=== PATIENT | female | born 1980 | race Caucasian/White ===

== ENCOUNTER 2017-05-28 11:40 | Emergency (ER) | payer BC ==
[2017-05-28 12:03] VITALS: BP 125/90
--- NOTE | 2017-05-28 12:34 | UC ---
Ear Complaint HPI - HPI Summary HPI Summary: 36 year old with ear pain. productive harsh cough x3 days, bilat ear pain and sore throat. Lost voice 2 days ago. [ End ] - History of Current Complaint Chief Complaint: UCGeneralIllness Stated Complaint: COUGH/ST/EAR ACHE Time Seen by Provider: 05/28/17 12:32 Hx Obtained From: Patient Hx Last Menstrual Period: 05/20/17 ?: No Onset/Duration: Gradual Onset Severity Initially: Moderate Severity Currently: Moderate - Allergies/Home Medications Allergies/Adverse Reactions: Allergies Allergy/AdvReac Type Severity Reaction Status Date / Time Metoclopramide [From Reglan] Allergy Severe Anaphylatic Verified 05/28/17 12:03 Shock Penicillins Allergy Severe Rash And Verified 03/02/17 14:49 Itching Clarithromycin [From Biaxin] Allergy Rash And Verified 03/02/17 14:49 Itching Doxycycline Allergy Rash And Verified 05/28/17 12:03 Itching Lisinopril Allergy Hives Verified 05/28/17 12:03 Sulfamethoxazole Allergy Hives Verified 05/28/17 12:03 w/Trimethoprim [From Bactrim] PMH/Surg Hx/FS Hx/Imm Hx Previously Healthy: Yes Cardiovascular History: Hypertension Psychological History: Anxiety, Depression - Surgical History Surgical History: Yes Surgery Procedure, Year, and Place: 5 eye surgeries TIGHTENED MUSCLES FOR CROSSED EYE, T & A, Bone biopsy left leg - Family History Known Family History: Positive: Cardiac Disease - Social History Occupation: Employed Full-time Lives: With Family Alcohol Use: None Substance Use Type: None Smoking Status (MU): Never Smoked Tobacco Have You Smoked in the Last Year: No - Immunization History Most Recent Influenza Vaccination: not current Review of Systems Constitutional: Fatigue ENT: Sore Throat, Ear Ache, Nasal Discharge, Sinus Congestion, Sinus Pain/ Tenderness Respiratory: Cough Is Patient Immunocompromised?: No All Other Systems Reviewed And Are Negative: Yes Physical Exam Triage Information Reviewed: Yes Appearance: Well-Appearing, No Pain Distress, Well-Nourished Vital Signs: Initial Vital Signs Temp 97.9 F 05/28/17 11:58 Pulse 106 05/28/17 11:58 Resp 18 05/28/17 11:58 BP 125/90 05/28/17 11:58 Pulse Ox 99 05/28/17 11:58 Vital Signs Reviewed: Yes Eye Exam: Normal ENT Exam: Normal ENT: Positive: Nasal congestion, Nasal drainage, TM dull Dental Exam: Normal Neck exam: Normal Neck: Positive: 1 Respiratory Exam: Normal Respiratory: Positive: Chest non-tender, Lungs clear, Normal breath sounds, No respiratory distress, No accessory muscle use Cardiovascular Exam: Normal Musculoskeletal Exam: Normal Neurological Exam: Normal Psychological Exam: Normal Skin Exam: Normal Ear Complaint Course/Dx - Course Course Of Treatment: Supportive care for viral URI - Differential Dx/Diagnosis Differential Diagnosis/HQI/PQRI: Otitis Externa, Otitis Media, Perforated TM, Pharyngitis, URI Provider Diagnoses: URI Discharge - Discharge Plan Condition: Good Disposition: HOME Prescriptions: Benzonatate [Benzonatate 200 MG] 200 mg PO TID #20 cap Patient Education Materials: Upper Respiratory Infection (ED) Forms: *Work Release Referrals: Beltran Escobedo MD [Primary Care Provider] - 4 Days Additional Instructions: Please consider using either claritin or Coricidan HBP with flonase in the AM. Please use Netti Pot and NyQuil in the PM.
== END 2017-05-28 12:54 | disposition home or self-care (01) ==
LOC: UCCORT 11:40
DX: J06.9 Acute upper respiratory infection, unspecified (principal); H92.03 Otalgia, bilateral; I10 Essential (primary) hypertension; Z88.1 Allergy status to other antibiotic agents; Z88.0 Allergy status to penicillin; Z88.8 Allergy status to other drugs, medicaments and biological substances; Z88.2 Allergy status to sulfonamides
CPT/HCPCS: 99212; G0463

== ENCOUNTER 2019-02-06 10:22 | Emergency (ER) | payer BC ==
[2019-02-06 11:00] VITALS: BP 139/92
--- NOTE | 2019-02-06 11:25 | UC ---
Throat Pain/Nasal Oumar HPI - HPI Summary HPI Summary: Pt presents with c/o ST, nasal congestion, cough, right ear ache, with green colored discharge yesterday, body aches, malaise, X 4 days. - History of Current Complaint Chief Complaint: UCRespiratory Stated Complaint: SORE THROAT RIGHT EAR COUGH Time Seen by Provider: 02/06/19 11:00 Hx Obtained From: Patient Hx Last Menstrual Period: 01/26/19 ?: No Onset/Duration: Gradual Onset, Lasting Days, Still Present Severity: Moderate Pain Intensity: 8 Cough: Productive Associated Signs & Symptoms: Positive: Dysphagia, Nasal Discharge - Epiglottits Risk Factors Epiglottis Risk Factors: Negative - Allergies/Home Medications Allergies/Adverse Reactions: Allergies Allergy/AdvReac Type Severity Reaction Status Date / Time metoclopramide [From Reglan] Allergy Severe Anaphylatic Verified 02/06/19 10:51 Shock clarithromycin Allergy Unknown Rash And Verified 02/06/19 10:51 Itching doxycycline Allergy Unknown Rash And Verified 02/06/19 10:51 Itching lisinopril Allergy Unknown Hives Verified 02/06/19 10:51 Penicillins Allergy Unknown Rash And Verified 02/06/19 10:51 Itching Sulfa (Sulfonamide Allergy Unknown Hives Verified 02/06/19 10:51 Antibiotics) Home Medications: Home Medications Verapamil TAB* [Calan TAB*] 80 mg PO DAILY 02/06/19 [History Confirmed 02/06/19] PMH/Surg Hx/FS Hx/Imm Hx Previously Healthy: Yes Neurological History: Migraine - Surgical History Surgical History: Yes Surgery Procedure, Year, and Place: 5 eye surgeries TIGHTENED MUSCLES FOR CROSSED EYE, T & A, Bone biopsy left leg - Family History Known Family History: Positive: Cardiac Disease - Social History Occupation: Employed Full-time Lives: With Family Alcohol Use: Occasionally Substance Use Type: None Smoking Status (MU): Never Smoked Tobacco Have You Smoked in the Last Year: No - Immunization History Most Recent Influenza Vaccination: not current Review of Systems All Other Systems Reviewed And Are Negative: Yes Constitutional: Positive: Chills, Fatigue Skin: Positive: Negative Eyes: Positive: Negative ENT: Positive: Sore Throat, Ear Ache, Nasal Discharge, Sinus Congestion Respiratory: Positive: Cough Cardiovascular: Positive: Negative Gastrointestinal: Positive: Negative Genitourinary: Positive: Negative Motor: Positive: Negative Neurovascular: Positive: Negative Musculoskeletal: Positive: Myalgia Psychological: Positive: Negative Is Patient Immunocompromised?: No Physical Exam Triage Information Reviewed: Yes Appearance: Ill-Appearing Vital Signs: Initial Vital Signs Temp 98.5 F 02/06/19 10:52 Pulse 95 02/06/19 10:52 Resp 20 02/06/19 10:52 BP 139/92 02/06/19 10:52 Pulse Ox 99 02/06/19 10:52 Vital Signs Reviewed: Yes Eye Exam: Normal ENT Exam: Normal ENT: Positive: Normal ENT inspection Dental Exam: Normal Neck exam: Normal Respiratory Exam: Normal Cardiovascular Exam: Normal Musculoskeletal Exam: Normal Neurological Exam: Normal Psychological Exam: Normal Skin Exam: Normal Throat Pain/Nasal Course/Dx - Course Course Of Treatment: I disucussed jason results of the rapid strep and discussed diagnosis of viral syndrome with pt. Pt verbalized understanding and agreed to plan of care. - Differential Dx/Diagnosis Differential Diagnosis/HQI/PQRI: Influenza, Otitis Media, Sinusitis, Tonsillitis , URI Provider Diagnosis: Acute viral syndrome Discharge ED - Sign-Out/Discharge Documenting (check all that apply): Patient Departure All imaging exams completed and their final reports reviewed: No Studies - Discharge Plan Condition: Stable Disposition: HOME Prescriptions: Benzonatate CAP* [Tessalon 100 MG CAP*] 200 mg PO Q8H PRN #30 cap PRN Reason: Cough Patient Education Materials: Viral Syndrome (ED) Referrals: Beltran Escobedo MD [Primary Care Provider] - If Needed Additional Instructions: Please follow up with your PCP as needed. for symptom management you may wan tto try Over the counter medications such as Dayquil and NyQuil. If your symptoms do not improve or they worsen, please seek care at the closest emergency room. - Billing Disposition and Condition Condition: STABLE Disposition: Home
== END 2019-02-06 11:39 | disposition home or self-care (01) ==
LOC: UCCORT 10:22
DX: B34.9 Viral infection, unspecified (principal); Z88.1 Allergy status to other antibiotic agents; Z88.0 Allergy status to penicillin; Z88.2 Allergy status to sulfonamides; Z88.8 Allergy status to other drugs, medicaments and biological substances
CPT/HCPCS: 87651; 99212; G0463

== ENCOUNTER 2019-07-25 15:20 | Emergency (ER) | payer BC ==
[2019-07-25 16:18] VITALS: BP 157/89
--- NOTE | 2019-07-25 16:19 | UC ---
FLU HPI - HPI Summary HPI Summary: Patient presents to urgent care with 5 days of progressive frontal sinus pressure. Patient states she's been having some fullness in her ears. Patient reports postnasal drip and cough. Patient states she feels tight when she coughs and slightly wheezy. No documented fevers but has felt warm and has had chills. Patient has taken Tylenol with short-term relief. Patient does have a history of sinus infections and states this feels similar. Patient does not have a history of asthma. Patient does not smoke or weight. Patient denies any short of breath but states it feels tight when she takes a deep breath. No nausea vomiting. No diarrhea. Patient states she is not . Patient's medications as entered in the EMR by triage was reviewed this visit. - History of Current Complaint Chief Complaint: UCGeneralIllness Stated Complaint: COUGH/HEADACHE Time Seen by Provider: 07/25/19 16:18 Hx Obtained From: Patient Hx Last Menstrual Period: 07/02/19 ?: No Severity Currently: None Severity Initially: Mild Pain Intensity: 2 - Allergy/Home Medications Allergies/Adverse Reactions: Allergies Allergy/AdvReac Type Severity Reaction Status Date / Time metoclopramide [From Reglan] Allergy Severe Anaphylatic Verified 07/25/19 16:09 Shock clarithromycin Allergy Unknown Rash And Verified 07/25/19 16:09 Itching doxycycline Allergy Unknown Rash And Verified 07/25/19 16:09 Itching lisinopril Allergy Unknown Hives Verified 07/25/19 16:09 Penicillins Allergy Unknown Rash And Verified 07/25/19 16:09 Itching Sulfa (Sulfonamide Allergy Unknown Hives Verified 07/25/19 16:09 Antibiotics) Home Medications: Home Medications Acetaminophen [Tylenol] 2 tab PO ONCE 07/25/19 [History Confirmed 07/25/19] Albuterol HFA INHALER* [Ventolin HFA Inhaler*] 2 puff INH Q4H PRN #1 mdi [Rx] Cefdinir [Cefdinir 300 MG CAP] 300 mg PO BID #20 cap 07/25/19 [Rx] PARoxetine HCL TAB* [Paxil TAB*] 5 mg PO DAILY 07/25/19 [History Confirmed 07/25] PMH/Surg Hx/FS Hx/Imm Hx Previously Healthy: Yes - Surgical History Surgical History: Yes Surgery Procedure, Year, and Place: 5 eye surgeries TIGHTENED MUSCLES FOR CROSSED EYE,. T & A. Bone biopsy left leg - Family History Known Family History: Positive: Cardiac Disease, Non-Contributory - Social History Occupation: Unemployed, Employed Full-time Lives: With Family Alcohol Use: Occasionally Substance Use Type: None Smoking Status (MU): Never Smoked Tobacco Have You Smoked in the Last Year: No - Immunization History Most Recent Influenza Vaccination: not current Review of Systems All Other Systems Reviewed And Are Negative: Yes Constitutional: Positive: Fever - Tactile, Chills, Fatigue ENT: Positive: Ear Ache, Nasal Discharge, Sinus Congestion, Other - Frontal headache Respiratory: Positive: Cough, Other - Wheeze Cardiovascular: Positive: Negative Gastrointestinal: Positive: Negative Genitourinary: Positive: Negative Physical Exam - Summary Physical Exam Summary: Vital Signs Reviewed: Yes A+Ox3, no distress, cpoarse persistent cough Eyes: Conjunctiva Clear, CHELSEA. EOM intact and full ENT: Hearing grossly normal fluid right ear + turbinates inflammed and boggy, + PND, mmoist, uvula midline, no exudate, no erythema Neck: Positive: Supple Respiratory: Positive: No respiratory distress, No accessory muscle use + coarse persistent cough,s cattered exp wheeze, no accessory muscle use Cardiovascular: RRR nl s1, s2 no m/r CBT <2 sec abd soft + BS nt/nd no guarding, no distension Musculoskeletal Exam: MAKI x 4 without difficulty Strength Intact, ROM Intact Neurological: Positive: Alert, + sensation throughout Psychological: Positive: Normal Response To examiner Skin: Positive: no rash, no ecchymosis Triage Information Reviewed: Yes Vital Signs: Initial Vital Signs Temp 98.6 F 07/25/19 16:08 Pulse 92 07/25/19 16:08 Resp 18 07/25/19 16:08 BP 157/89 07/25/19 16:08 Pulse Ox 99 07/25/19 16:08 Re-Evaluation - Re-Evaluation Second Eval Change: Improved - pt reports feeling yaniv following neb wheeze improved cough improved reviewed secretion precaution hydrate abx MDI return precaution Flu Course/Dx - Course Course Of Treatment: Patient presents to urgent care reporting 5 days of frontal headache congestion postnasal drip ear fullness. Patient with 2 days of cough. Nonproductive. States it feels tight in her chest with deep breaths. No shortness of breath. Patient does not smoke or weight. Vital signs reviewed. On exam patient does have an consistent with frontal sinusitis. Patient with otitis and serous in his right ear. Congested turbinates and postnasal drip. Patient does have coarse cough and scattered exudate release. We'll do DuoNeb and reassessed. Patient comfortable with plan. Also ordered rapid flu given her symptoms. Elevated blood pressure likely related to today's condition. Recommend patient follow up PCP. - Differential Dx/Diagnosis Provider Diagnosis: Rhinosinusitis, Acute bronchitis Discharge ED - Sign-Out/Discharge Documenting (check all that apply): Patient Departure All imaging exams completed and their final reports reviewed: No Studies - Discharge Plan Condition: Stable Disposition: HOME Prescriptions: Albuterol HFA INHALER* [Ventolin HFA Inhaler*] 2 puff INH Q4H PRN #1 mdi PRN Reason: wheeze Cefdinir [Cefdinir 300 MG CAP] 300 mg PO BID #20 cap Patient Education Materials: Acute Bronchitis (ED), Rhinosinusitis (ED) Forms: *Gen. Provider Communication, *Work Release Referrals: Beltran Escobedo MD [Primary Care Provider] - Additional Instructions: -Take antibiotics exactly as prescribed until gone -Use your albuterol puffer - 2 puffs every 4 hours for the next 2 days - then as needed -Stay well hydrated - avoid excess caffeine and all alcohol - eat regular, healthy meals - - humidify the air in the room where you sleep - boil water, run a hot steam shower, vaporizer, cups of water by heat register - okay to take over the counter decongestant and cough medication -- These infections are spread by secretions - do NOT share eating or drinking utensils - clean items you share with other people such as cell phones, computer mouse, TV remote, computer tablets,etc.. Once you have been antibiotics for 2 days, change your toothbrush and your pillowcase. -Contact your doctor to arrange a follow-up appointment this week. Call your doctor, return here or go to the emergency department with any questions or concerns - Billing Disposition and Condition Condition: STABLE Disposition: Home
[2019-07-25 16:35] LABS: Influenza A Molecular Negative (Negative); Influenza B Molecular Negative (Negative)
[2019-07-25] MEDS ORDERED: Albuterol/Ipratropium NEB.SOL* Albuterol 2.5 MG/Ipratropium 0.5 MG 3 ML INH ONE (16:39)
== END 2019-07-25 17:15 | disposition home or self-care (01) ==
LOC: UCCORT 15:20
DX: J32.9 Chronic sinusitis, unspecified (principal); J20.9 Acute bronchitis, unspecified; H92.09 Otalgia, unspecified ear; Z88.1 Allergy status to other antibiotic agents; Z88.0 Allergy status to penicillin; Z88.2 Allergy status to sulfonamides
CPT/HCPCS: 99212; A9270-GY; G0463

== ENCOUNTER 2019-08-04 16:51 | Emergency (ER) | payer BC ==
[2019-08-04 17:03] VITALS: BP 156/98
--- NOTE | 2019-08-04 17:08 | UC ---
Cardiac HPI - HPI Summary HPI Summary: 39-year-old female presenting with "chest tightness"3 days and left shoulder pain that radiates down into her arm 2 days. Patient states chest pain is worsened with coughing and deep breaths. Denies shortness of breath at rest but notes shortness of breath on exertion. Denies wheezing. Denies nausea or vomiting. Patient states her symptoms have not worsened but she is now worried because they are not going away. Denies recent trauma or injury of left arm. Patient does note history of anxiety and is currently taking Paxil for it. Does state that she has been "more anxious lately" because her son recently had surgery "with a tube down his throat" and her father just had a heart attack along with her parents . States this has caused her a lot of stress recently. Does note anxiety attacks in the past but is unsure if she had similar symptoms with them because she has not had one in so long. States she was diagnosed with acute bronchitis here last week and given albuterol inhaler and an antibiotic. States she has not used the inhaler because it is all gone. Denies recent travel, illness, surgery, history of blood clots, or OCPs. - History of Current Complaint Chief Complaint: UCChestPain Stated Complaint: SOB,CHEST PAIN,ARM PAIN Hx Obtained From: Patient Hx Last Menstrual Period: 07/29/19 Pain Intensity: 4 - Allergy/Home Medications Allergies/Adverse Reactions: Allergies Allergy/AdvReac Type Severity Reaction Status Date / Time metoclopramide [From Reglan] Allergy Severe Anaphylatic Verified 08/04/19 16:59 Shock clarithromycin Allergy Unknown Rash And Verified 08/04/19 16:59 Itching doxycycline Allergy Unknown Rash And Verified 08/04/19 16:59 Itching lisinopril Allergy Unknown Hives Verified 08/04/19 16:59 Penicillins Allergy Unknown Rash And Verified 08/04/19 16:59 Itching Sulfa (Sulfonamide Allergy Unknown Hives Verified 08/04/19 16:59 Antibiotics) Home Medications: Home Medications PARoxetine HCL TAB* [Paxil TAB*] 5 mg PO DAILY 07/25/19 [History Confirmed 08/03] Albuterol HFA INHALER* [Ventolin HFA Inhaler*] 1 - 2 puff INH Q4H PRN #1 mdi 10/18 [Rx] PMH/Surg Hx/FS Hx/Imm Hx Psychological History: Anxiety - Surgical History Surgical History: Yes Surgery Procedure, Year, and Place: 5 eye surgeries TIGHTENED MUSCLES FOR CROSSED EYE,. T & A. Bone biopsy left leg - Family History Known Family History: Positive: Cardiac Disease, Non-Contributory - Social History Alcohol Use: None Substance Use Type: None Smoking Status (MU): Never Smoked Tobacco Have You Smoked in the Last Year: No - Immunization History Most Recent Influenza Vaccination: not current Review of Systems All Other Systems Reviewed And Are Negative: Yes Constitutional: Positive: Negative. Negative: Fever, Chills ENT: Positive: Negative Respiratory: Positive: Shortness Of Breath - on exertion, Cough Cardiovascular: Positive: Chest Pain Gastrointestinal: Positive: Negative Musculoskeletal: Positive: Arthralgia - left arm pain Neurological/Mental Status: Positive: Negative Physical Exam - Summary Physical Exam Summary: Vital Signs Reviewed: Yes A+Ox3, no distress, well-appearing Eyes: Conjunctiva Clear ENT: Hearing grossly normal, TM x 2 clear, moist, uvula midline, no exudate, no erythema Neck: Positive: Supple Respiratory: Positive: No respiratory distress, No accessory muscle use + CTA throughout no w/r, coarse persistent dry cough Cardiovascular: RRR nl s1, s2 no m/r Musculoskeletal Exam: MAKI x 4 without difficulty, +mild TTP of sternum and left dorsal shoulder Neurological: Positive: Alert, + sensation throughout Psychological: Positive: age appropriate behavior Skin: Positive: no rash, no ecchymosis Vital Signs: Initial Vital Signs Temp 98.4 F 08/04/19 16:53 Pulse 99 08/04/19 16:53 Resp 18 08/04/19 16:53 BP 156/98 08/04/19 16:53 Pulse Ox 100 08/04/19 16:53 Diagnostics - Radiology CXR Radiology Interpretation Completed By: Radiologist Summary of Radiographic Findings: IMPRESSION: NO ACTIVE CARDIOPULMONARY DISEASE. - EKG Cardiac Rate: NL - 97 Cardiac Rhythm: Sinus: Normal Ectopy: None ST Segment: Normal - Assessment/Plan Course Of Treatment: EKG WNL. CXR normal. VS normal and lung sounds clear. Discussed with patient likely anxiety related symptoms or residual symptoms from acute bronchitis diagnosed last week. I provided the patient with a refill on her albuterol inhaler for shortness of breath. Also instructed the patient to take ibuprofen and Tylenol for pain relief. I instructed the patient to follow-up with her primary care next week for reevaluation of symptoms if persisting. Instructed to go to the emergency room with any new or worsening symptoms. Patient voiced understanding and agreed with the treatment plan. Discussed patient with Dr. Shaikh who also agreed with treatment plan. - Clinical Impression Provider Diagnosis: Sensation of chest tightness, Acute bronchitis Discharge ED - Sign-Out/Discharge Documenting (check all that apply): Patient Departure All imaging exams completed and their final reports reviewed: Yes - Discharge Plan Condition: Stable Disposition: HOME Prescriptions: Albuterol HFA INHALER* [Ventolin HFA Inhaler*] 1 - 2 puff INH Q4H PRN #1 mdi PRN Reason: Sob/Wheezing Patient Education Materials: Acute Bronchitis (ED), Anxiety (ED) Referrals: Beltran Escobedo MD [Primary Care Provider] - If Needed Additional Instructions: Take ibuprofen as directed for pain relief. You may continue with your inhaler as needed for shortness of breath. Follow up with your primary care provider if symptoms persist. Go to the emergency room if you experience any new or worsening symptoms. - Billing Disposition and Condition Condition: STABLE Disposition: Home
== END 2019-08-04 18:00 | disposition home or self-care (01) ==
LOC: UCCORT 16:51
DX: R07.89 Other chest pain (principal); J20.9 Acute bronchitis, unspecified; Z88.0 Allergy status to penicillin; Z88.2 Allergy status to sulfonamides; Z88.8 Allergy status to other drugs, medicaments and biological substances; Z88.1 Allergy status to other antibiotic agents
CPT/HCPCS: 71046; 93005; 99212; G0463